=== PATIENT | female | born 1970 | race Caucasian/White ===

== ENCOUNTER 2018-10-18 14:26 | Emergency (ER) | payer OTHER ==
[~2018-10-18] VITALS: Ht 160 cm; Wt 107.0 kg
[2018-10-18] MEDS ORDERED: TOPROL XL100 M1 (14:33)
== END 2018-10-18 21:33 | disposition home or self-care (01) ==
LOC: ER 14:26
DX: N83.291 Other ovarian cyst, right side (principal); D25.9 Leiomyoma of uterus, unspecified; R10.31 Right lower quadrant pain